=== PATIENT | male | born 1950 | race Caucasian/White ===

== ENCOUNTER 2016-08-30 02:05 | Inpatient (IN) | payer MEDICARE ==
[~2016-08-30] VITALS: Ht 172.7 cm; Wt 68.0 kg
[~2016-08-30 02:05] MED LIST: ALPR0.25 PO; BUDE10.2 IH; DILT180C90 PO; GUAI120L35 PO; LEVO500T38 PO; METO25TA9 PO; PRED20TA PO; PROP150T2 PO; PROVENTIL HFA6.7 GM IH; VALS1TAB8 PO
[2016-08-30] MEDS ORDERED: IV NORMAL SALINE 1000ML BAG 1,000 ML IV SCH (02:23)
[2016-08-30] MEDS ORDERED: ONDANSETRON PF 4 MG/2 ML VIAL. IV PRN ×2 (03:00→09:28)
[2016-08-30] MEDS ORDERED: DILTIAZEM 125 MG in IV DEXTROSE 5% 100 ML IV ONE (03:00)
[2016-08-30] MEDS ORDERED: ASPIRIN 325 MG TABLET PO ONE (03:00)
[2016-08-30] MEDS ORDERED: DILTIAZEM IV PUSH 25 MG/5 ML VIAL. IVP ONE (03:00)
[2016-08-30] MEDS ORDERED: ACETAMINOPHEN 325 MG TABLET. PO PRN (03:00)
[2016-08-30 03:01] LABS: BASO % 0 % (0-3); EOS % 0 % (0-3); HEMOGLOBIN 13.1 g/dL (13.0-17.5); LYMPH # 0.7 x10^3/uL (1.0-4.8); LYMPH % 5 % (24-48); MEAN CORPUSCULAR HEMOGLOBIN 27 pg (25-35); MEAN CORPUSCULAR HGB CONC 33 g/dL (31-37); MEAN CORPUSCULAR VOLUME 84 fL (79-100); MONO % 8 % (0-9); NEUT % 87 % (31-73); PLATELET COUNT 235 x10^3/uL (140-400); RED BLOOD COUNT 4.77 x10^6/uL (4.30-5.70); WHITE BLOOD COUNT 14.1 x10^3/uL (4.0-11.0)
[2016-08-30 03:11] LABS: INR 1.2 (0.8-1.1); PROTHROMBIN TIME PATIENT 14.2 SEC (11.7-14.0)
[2016-08-30 04:09] LABS: ANISOCYTOSIS SLIGHT; PLT ESTIMATE ADEQUATE (ADEQUATE)
[2016-08-30] MEDS: IV NORMAL SALINE 1000ML BAG 1,000 ML IV SCH ×3 (04:46→17:45)
[2016-08-30 05:00] VITALS: BP 131/81
--- NOTE | 2016-08-30 05:46 | PHYS DOC ---
Past Medical History Past Medical History: A-Fib, Bronchitis, COPD, Hypertension Past Surgical History: No Surgical History Alcohol Use: Occasionally Drug Use: None Adult General Chief Complaint Chief Complaint: Palpitations HPI HPI Patient is a 66 year old gentleman with a history significant for hypertension , COPD, atrial fibrillation, recent hospitalization for influenza, presents to the ER today secondary to palpitations in his chest. Patient reports that last time he was in atrial fibrillation he believes was approximately7 years ago. Patient reports that today he started feeling palpitations in his chest. In reviewing the old records, it appears that during his last ER visit when he was admitted for influenza that there was a question of whether or not he was in rapid A. fib. Patient was initially started on Cardizem however secondary to peripheral edema when he went home with a he stopped taking his Cardizem per discussion with Dr. Christina and he continues to take his metoprolol. Patient reports she's had palpitations 1 day. Patient denies any fevers shakes chills nausea vomiting diarrhea. Patient reports she's had a nonproductive cough without sputum getting better since his discharge from the hospital with influenza. Patient denies any chest pain or lower 70 edema. Patient reports his e commerce manager Dr. Rodas and his enterprise resource planner is Dr. Martinez. Patient reports that he saw Dr. Martinez yesterday and he was started on Levaquin and prednisone for his cough. Patient reports that he had seen Dr. Rodas approximately 2-3 days ago and started him on Phenergan with codeine however Dr. orosco recommended to him that he not take that medication since it's narcotic and might affect his respiratory status. Patient's physical exam was significant for irregularly irregular heart rate was tachycardic to 140. Patient was in no respiratory distress. Patient appeared comfortable. Patient's lungs were clear with no wheezing rales or rhonchi. Patient's ER hospital course was significant for atrial fibrillation with RVR. Patient was given a Cardizem bolus and started on a Cardizem drip to assist with his tachycardia. Patient's remainder of his workup was unremarkable. Patient's chest x-ray labs were all within normal limits. Patient will be admitted to the hospital for further evaluation. Case was discussed with . Critical care time 35 minutes were utilizing the treatment and management of this patient's atrial fibrillation with RVr and the potential for hemodynamic instability. Review of Systems Review of Systems Constitutional: Denies fever or chills [] Eyes: Denies change in visual acuity, redness, or eye pain [] All other review systems are negative except as documented in the history of present illness. Current Medications Current Medications Current Medications Medications (Trade) Dose Ordered Sig/Pillo Start Time Stop Time Status Last Admin Dose Admin Sodium Chloride (Iv Sodium Chloride 0.9% 1000ml Bag) 1,000 ml @ 1,000 mls/hr Q1H 08/30/16 02:23 08/30/16 03:22 DC 08/30/16 03:11 1,000 MLS/HR Allergies Allergies Allergies Coded Allergies Type Severity Reaction Last Updated Verified erythromycin base Allergy Severe intussusception 08/06/16 Yes Physical Exam Physical Exam Constitutional: Well developed, well nourished, no acute distress, non-toxic appearance. [] HENT: Normocephalic, atraumatic, bilateral external ears normal, oropharynx moist, no oral exudates, nose normal. [] Eyes: PERRLA, EOMI, conjunctiva normal, no discharge. [] Neck: Normal range of motion, no tenderness, supple, no stridor. [] Cardiovascula irreg irreg tachy Lungs & Thorax: Bilateral breath sounds clear to auscultation [] Abdomen: Bowel sounds normal, soft, no tenderness, no masses, no pulsatile masses. [] Skin: Warm, dry, no erythema, no rash. [] Back: No tenderness, no CVA tenderness. [] Extremities: No tenderness, no cyanosis, no clubbing, ROM intact, no edema. [] Neurologic: Alert and oriented X 3, normal motor function, normal sensory function, no focal deficits noted. [] Psychologic: Affect normal, judgement normal, mood normal. [] Current Patient Data Vital Signs Vital Signs Date Time Temp Pulse Resp B/P Pulse Ox O2 Delivery O2 Flow Rate FiO2 08/30/16 02:05 97.8 70 24 140/83 97 Nasal Cannula 2.5 97.8 EKG EKG [] Radiology/Procedures Radiology/Procedures [] EKG reveals atrial fibrillation with RVR no STEMI. Course & Med Decision Making Course & Med Decision Making Pertinent Labs and Imaging studies reviewed. (See chart for details) [] Dragon Disclaimer Dragon Disclaimer This electronic medical record was generated, in whole or in part, using a voice recognition dictation system. Departure Departure Impression: Primary Impression: Atrial fibrillation with RVR Disposition: ADMITTED INPATIENT Admitting Physician: Alfa Li Condition: GUARDED Referrals: NO PCP (PCP) IGNACIA VENEGAS MD Aug 30, 2016 05:46
[2016-08-30 05:52] LABS: CALCIUM 8.9 mg/dL (8.5-10.1); CREATININE 0.5 mg/dL (0.7-1.3); GFR 166.4; POTASSIUM 3.5 mmol/L (3.5-5.1)
[2016-08-30 05:58] LABS: ALBUMIN 2.3 g/dL (3.4-5.0); DIRECT BILIRUBIN 0.1 mg/dL (0.0-0.2); MAGNESIUM 1.8 mg/dL (1.8-2.4); TOTAL BILIRUBIN 0.4 mg/dL (0.2-1.0)
[2016-08-30] MEDS ORDERED: ALBUTEROL SULFATE 2.5 MG/3 ML NEBU. NEB ONE (06:00)
[2016-08-30 06:20] LABS: OBC FLU VALID
--- NOTE | 2016-08-30 06:40 | EKG ---
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 LOW LIMB LEAD VOLTAGE QRS(T) CONTOUR ABNORMALITY CONSIDER ANTEROSEPTAL MYOCARDIAL DAMAGE RI6.01 Unconfirmed report Electronically Signed On 09-02-2016 13:53:35 STEM ASSEMBLER by Chacorta Duong
--- NOTE | 2016-08-30 07:14 | RAD ---
Exam performed: One view chest. Indication: svt; COUGH X TONIGHT Date of Service: 08/30/2016 4:23 AM Comparison: 08/06/16. Single AP upright portable view chest findings: Cardiomediastinal silhouette is within limits of normal. No acute infiltrates, effusion or pneumothorax is detected. The bony structures are normal. Impression: No acute cardiopulmonary process is detected.
--- NOTE | 2016-08-30 07:33 | ACF ---
Admit Criteria Forms Admit Criteria Forms Admit Criteria Forms ATRIAL FIBRILLATION Clinical Indications for Admission to Inpatient Care (Place 'X' for any and all applicable criteria): Admission indicated for ANY ONE of the following(1)(2)(3)(4)(5) : [ ]I. Myocardial ischemia [ ]II. Dyspnea or hypoxemia [X]III. Hemodynamic instability [ ]IV. Heart failure (e.g., pulmonary edema) (7) [ ]V. New-onset (less than 48 hours) atrial fibrillation with high risk for causing complications secondary to comorbidities (eg, symptomatic heart failure ) [ ]. Altered mental status [ ]VII. Syncope [ ]VIII. Patient has implantable cardioverter defibrillator that has fired more than once within past 24hr or needs immediate adjustment of settings that cannot be done other than in inpatient setting. (8) [ ]IX. Suspected accessory pathway (e.g., Edqfd-Uvvuziepl-Oarfj syndrome) on ECG [ ]X. Recent systemic thromboembolism (eg, stroke) [ ]XI. Medication toxicity (e.g., digitalis) causing arrhythmia(9) [ ]XII. Underlying medical condition that necessitates inpatient care (e.g., thyrotoxicosis, pneumonia) (10) [ ]XIII. Continuous ECG monitoring is required for condition causing arrhythmia (e.g., severe hyperkalemia, hypokalemia, acid-base disturbance).(11)(12)(13) [ ]XIV. Initiation of antiarrhythmic drug therapy is needed in patient at high risk of adverse effects as indicated by ANY ONE of the following: [ ]a) Significant structural heart disease (e.g., reduced ejection fraction, congenital heart disease, valvular heart disease) [ ]b) Prolonged QT interval [ ]c) Underlying sinus node or atrioventricular conduction disturbances [ ]d) Need for treatment with antiarrhythmic drugs that have significant proarrhythmic potential (e.g., dofetilide, sotalol, procainamide) [ ]e) Patient whose sinus rhythm has never been observed on ECG [ ]XV. Intolerable symptoms despite optimal outpatient treatment [ ]XVI. Elective or urgent cardioversion that cannot be performed on outpatient basis or during observation care. [A] (Use also Atrial Fibrillation: Observation Care ) as appropriate.(14) [ ]XVII.Contraindications and/or Inappropriate clinical situations for Observational Care in patients with Atrial Fibrillation, when ANY ONE of the following is required: [ ]a) Patient with High risk of cardiac embolism (e.g, patients with previous cardiac embolism, LVEF < 40%, age >75 and patients with prosthetic valve) 18 [ ]b) Patient with Moderate risk including DM patient, CAD and patient aged 65-75 18 [ ]c) Patient with any change in cardiac biomarker especially troponin should be managed as high risk in an inpatient setting 19 [ ]d) Physician judgement irrespective of ECG and other diagnostic findings 20 [ ]XVIII.General contraindications and/or Inappropriate clinical situations for Observational Care in patients with Atrial Fibrillation, when ANY ONE of the following is required: [ ]a) Prediction of prolongation of LOS based on ANY ONE of the following may be considered as a contraindication for observational care 2, 3, 4, 5, 6, 7, 8, 9, 10, 11 [ ]i) Age > 65 yrs. [ ]ii) Patient arriving by ambulance [ ]iii) Patient with high acuity [ ]iv) Patient requiring vital sign monitoring [ ]v) Patient on IV medication [ ]b) Systolic blood pressures 180mmHg 3,12 [ ]c) Patient with altered mental status including delirium and other alteration of consciousness3 [ ]d) Patient whose discharge disposition will be to a alf home or rehabilitation home should not be managed in Emergency Department Observation Unit. CMS rule requires 3 days hospital stay before such placement.3,13 [ ]e) Patient with failure to thrive due to broad array of etiologies 3,16,17 [ ]f) Inability to ambulate 3,14 Extended stay beyond goal length of stay may be needed for (1)(25)(26): [ ]a) Unstable comorbidities [ ]b) Persistently uncontrolled atrial fibrillation or other arrhythmias [ ]c) Acute thromboembolic event (e.g., stroke, limb ischemia) [ ]d) Need for inpatient attainment of full anticoagulation The original [employer] content created by [employer] has been revised. The portions of the content which have been revised are identified through the use of italic text or in bold, and [employer] has neither reviewed nor approved the modified material. All other unmodified content is copyright [employer]. Please see references footnoted in the original [employer] edition 2015 TERESE HANSEN Aug 30, 2016:33
[2016-08-30 07:56] VITALS: BP 101/63
--- NOTE | 2016-08-30 09:17 | PDOC2 ---
CONSULT Date of Consult Date of Consult DATE: 08/30/16 TIME: 09:07 Reason for Consult Reason for Consult: A fib with RVR Referring Physician Referring Physician: Dr. Limon Identification/Chief Complaint Chief Complaint Palpitations, irregular heartbeat History of Present Illness Reason for Visit: This pleasant 66 year old male presented to the ER overnight with complaints of palpitations and irregular heart beat. He states he had seen Dr Wyman earlier and was started on Levaquin and Prednisone. He states that about 1 hour after taking first dose of Prednisone at around 1 p.m. he noticed palpitations. A few hours after going to bed, he woke up and noticed his heart beating fast again, felt his pulse, and noticed it was irregular. With his history of prior episodes of a-fib, he knew he needed to go to the ER. He was recently hospitalized for the flu in early July, and states that after about 3 weeks he was starting to feel better and had gone out to run a few errands over the last week. His cough has worsened over the last week, is non-productive. States that taking cough syrup upsets his stomach. During his cardiology appointment this week he was given Phenergan with Codeine, which he states he never took because he read the side effects and was not comfortable with that profile. At his visit with Dr Wyman he was given new medications and advised not to take Phenergan with Codeine due to concerns about respiratory status. In ER, EKG revealed A-fib with RVR and patient was started on Cardizem. He has remained on Diltiazem since admission and currently denies any palpitations, lightheadedness, or dizziness. Current Problem List Problem List Problems Medical Problems: (1) Atrial fibrillation with RVR Status: Acute Current Medications Current Medications Current Medications Diltiazem HCl (Cardizem) 20 mg 1X ONCE IVP Last administered on 08/30/16 03:14 ; Start 08/30/16 at 03:00; Stop 08/30/16 at 03:01; Status DC Aspirin 325 mg 325 mg 1X ONCE PO Last administered on 08/30/16 03:12; Start at 03:00; Stop 08/30/16 at 03:01; Status DC Diltiazem HCl 125 mg/Dextrose 125 ml @ 10 mls/hr 1X ONCE IV Last administered on 08/30/16 03:42; Start 08/30/16 at 03:00; Stop 08/30/16 at 15:29 Sodium Chloride (Iv Sodium Chloride 0.9% 1000ml Bag) 1,000 ml @ 1,000 mls/hr Q1H IV Last administered on 08/30/16 03:11; Start 08/30/16 at 02:23; Stop at 03:22; Status DC Ondansetron HCl 4 mg 4 mg PRN Q8HRS PRN IV NAUSEA/VOMITING; Start 08/30/16 at 03 :00; Stop 08/31/16 at 02:59 Sodium Chloride (Iv Sodium Chloride 0.9% 1000ml Bag) 1,000 ml @ 125 mls/hr Q8H IV Last administered on 08/30/16 04:46; Start 08/30/16 at 02:48; Stop 08/31/16 at 02:47 Acetaminophen (Tylenol) 650 mg PRN Q4HRS PRN PO FEVER; Start 08/30/16 at 03:00; Stop 08/31/16 at 02:59 Albuterol Sulfate (Ventolin Neb Soln) 2.5 mg 1X ONCE NEB Last administered on 08/30/16 06:08; Start 08/30/16 at 06:00; Stop 08/30/16 at 06:01; Status DC Active Scripts Active Levaquin (Levofloxacin) 500 Mg Tablet 500 Mg PO DAILY06 Diltiazem 24Hr Cd (Diltiazem HCl) 180 Mg Cap.er.24h 180 Mg PO DAILY Reported Symbicort 160-4.5 Mcg Inhaler (Budesonide/Formoterol Fumarate) 10.2 Gm Hfa.aer.ad 2 Puff IH BID Xanax (Alprazolam) 0.25 Mg Tablet 0.25 Mg PO Q PRN BID PRN Metoprolol Succinate ( Xl ) (Metoprolol Succinate) 25 Mg Tab.er.24h 25 Mg PO BID Allergies Allergies: Coded Allergies: erythromycin base (Verified Allergy, Severe, intussusception, 08/06/16) Physical Exam General: Alert, Oriented X3, Cooperative, No acute distress Lungs: Other (Coarse breath sounds b/l) Heart: Regular rate, Other (Irregularly irregular rhythm) Abdomen: Soft, No tenderness Extremities: No cyanosis, No edema Vitals VITALS Vital Signs Date Time Temp Pulse Resp B/P Pulse Ox O2 Delivery O2 Flow Rate FiO2 08/30/16 07:56 97.5 97 23 101/63 96 Nasal Cannula 3.0 97.5 Labs Labs Laboratory Tests Test 08/30/16 02:51 08/30/16 05:34 08/30/16 05:45 White Blood Count 14.1x10^3/uL (4.0-11.0) Red Blood Count 4.77x10^6/uL (4.30-5.70) Hemoglobin 13.1g/dL (13.0-17.5) Hematocrit 40.0% (39.0-53.0) Mean Corpuscular Volume 84fL (79-100) Mean Corpuscular Hemoglobin 27pg (25-35) Mean Corpuscular Hemoglobin Concent 33g/dL (31-37) Red Cell Distribution Width 15.0% (11.5-14.5) Platelet Count 235x10^3/uL (140-400) Neutrophils (%) (Auto) 87% (31-73) Lymphocytes (%) (Auto) 5% (24-48) Monocytes (%) (Auto) 8% (0-9) Eosinophils (%) (Auto) 0% (0-3) Basophils (%) (Auto) 0% (0-3) Neutrophils # (Auto) 12.3x10^3uL (1.8-7.7) Lymphocytes # (Auto) 0.7x10^3/uL (1.0-4.8) Monocytes # (Auto) 1.1x10^3/uL (0.0-1.1) Eosinophils # (Auto) 0.0x10^3/uL (0.0-0.7) Basophils # (Auto) 0.0x10^3/uL (0.0-0.2) Segmented Neutrophils % 90% (35-66) Lymphocytes % 5% (24-48) Monocytes % 5% (0-10) Platelet Estimate Adequate (ADEQUATE) Anisocytosis Slight Prothrombin Time 14.2SEC (11.7-14.0) Prothromb Time International Ratio 1.2 (0.8-1.1) Sodium Level 140mmol/L (136-145) Potassium Level 3.5mmol/L (3.5-5.1) Chloride Level 100mmol/L (98-107) Carbon Dioxide Level 37mmol/L (21-32) Anion Gap 3 (6-14) Blood Urea Nitrogen 9mg/dL (8-26) Creatinine 0.5mg/dL (0.7-1.3) Estimated GFR (Cockcroft-Gault) 166.4 Glucose Level 100mg/dL (70-99) Calcium Level 8.9mg/dL (8.5-10.1) Magnesium Level 1.8mg/dL (1.8-2.4) Total Bilirubin 0.4mg/dL (0.2-1.0) Direct Bilirubin 0.1mg/dL (0.0-0.2) Aspartate Amino Transf (AST/SGOT) 23U/L (15-37) Alanine Aminotransferase (ALT/SGPT) 30U/L (16-63) Alkaline Phosphatase 61U/L (46-116) Troponin I Quantitative < 0.017ng/mL (0.000-0.055) AT-Fen-X-Type Natriuretic Peptide 350pg/mL (0-124) Total Protein 6.0g/dL (6.4-8.2) Albumin 2.3g/dL (3.4-5.0) Thyroid Stimulating Hormone (TSH) 0.356uIU/mL (0.358-3.74) Influenza Type A Antigen Negative (NEGATIVE) Influenza Type B Antigen Negative (NEGATIVE) Laboratory Tests Test 08/30/16 02:51 08/30/16 05:34 08/30/16 05:45 White Blood Count 14.1x10^3/uL (4.0-11.0) Red Blood Count 4.77x10^6/uL (4.30-5.70) Hemoglobin 13.1g/dL (13.0-17.5) Hematocrit 40.0% (39.0-53.0) Mean Corpuscular Volume 84fL (79-100) Mean Corpuscular Hemoglobin 27pg (25-35) Mean Corpuscular Hemoglobin Concent 33g/dL (31-37) Red Cell Distribution Width 15.0% (11.5-14.5) Platelet Count 235x10^3/uL (140-400) Neutrophils (%) (Auto) 87% (31-73) Lymphocytes (%) (Auto) 5% (24-48) Monocytes (%) (Auto) 8% (0-9) Eosinophils (%) (Auto) 0% (0-3) Basophils (%) (Auto) 0% (0-3) Neutrophils # (Auto) 12.3x10^3uL (1.8-7.7) Lymphocytes # (Auto) 0.7x10^3/uL (1.0-4.8) Monocytes # (Auto) 1.1x10^3/uL (0.0-1.1) Eosinophils # (Auto) 0.0x10^3/uL (0.0-0.7) Basophils # (Auto) 0.0x10^3/uL (0.0-0.2) Segmented Neutrophils % 90% (35-66) Lymphocytes % 5% (24-48) Monocytes % 5% (0-10) Platelet Estimate Adequate (ADEQUATE) Anisocytosis Slight Prothrombin Time 14.2SEC (11.7-14.0) Prothromb Time International Ratio 1.2 (0.8-1.1) Sodium Level 140mmol/L (136-145) Potassium Level 3.5mmol/L (3.5-5.1) Chloride Level 100mmol/L (98-107) Carbon Dioxide Level 37mmol/L (21-32) Anion Gap 3 (6-14) Blood Urea Nitrogen 9mg/dL (8-26) Creatinine 0.5mg/dL (0.7-1.3) Estimated GFR (Cockcroft-Gault) 166.4 Glucose Level 100mg/dL (70-99) Calcium Level 8.9mg/dL (8.5-10.1) Magnesium Level 1.8mg/dL (1.8-2.4) Total Bilirubin 0.4mg/dL (0.2-1.0) Direct Bilirubin 0.1mg/dL (0.0-0.2) Aspartate Amino Transf (AST/SGOT) 23U/L (15-37) Alanine Aminotransferase (ALT/SGPT) 30U/L (16-63) Alkaline Phosphatase 61U/L (46-116) Troponin I Quantitative < 0.017ng/mL (0.000-0.055) EU-Oje-B-Type Natriuretic Peptide 350pg/mL (0-124) Total Protein 6.0g/dL (6.4-8.2) Albumin 2.3g/dL (3.4-5.0) Thyroid Stimulating Hormone (TSH) 0.356uIU/mL (0.358-3.74) Influenza Type A Antigen Negative (NEGATIVE) Influenza Type B Antigen Negative (NEGATIVE) Assessment/Plan Assessment/Plan 1. A-fib with RVR The pt was supossed to be on Rhythmol 150mg po bid but I do not know exactly what dose he is taking. In the past when I tried to give him Diltiazem he developed edema of the lower extremities and it was stopped. Will resume the PO Rhythmol. He picks and chooses how he takes meds. Will follow him with you Thank you for asking me to participate in the care of this pt. DEE FRANKS MD Aug 30, 2016 09:17
[2016-08-30] MEDS ORDERED: DILTIAZEM HCL 180 MG CAP.ER.24H PO SCH (10:00)
[2016-08-30 10:23] LABS: FREE T4 1.11 ng/dL (0.76-1.46)
[2016-08-30] MEDS ORDERED: BENZONATATE 100 MG CAPSULE. PO PRN (10:30)
--- NOTE | 2016-08-30 10:38 | PDOC1 ---
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 Hx left lung nodule, Extensive time dw him pred wont usually caus atrial fib but can cause tachy Pt when asked has hx of paroxysmal atrial fib in the past, this might be his 4th or 5th epsiode, He would sponatneously convert, was never placed on blood thinners TSH low side, mild, no known thyroid issues Called pulmo per pt request to make sure pred is safe or unsafe to take, CXR clear, no wheezing but pt is coughing. We decided hold off on pred in [place] light of this active afib RVR issue Dw pt SIGNFI TIME With my signif time with him today, sound slike he has had multiple adverse reactions to other emds, like OTC mucinex, etc Past Medical History Cardiovascular: AFIB, HTN Pulmonary: Bronchitis Psych: Anxiety Past Surgical History Past Surgical History: No pertinent history Family History Family History: No Significant Social History Smoke: Quit ALCOHOL: none Drugs: None Current Problem List Problem List Problems Medical Problems: (1) Atrial fibrillation with RVR Status: Acute Problems: Current Medications Current Medications Current Medications Diltiazem HCl (Cardizem) 20 mg 1X ONCE IVP Last administered on 08/30/16 03:14 ; Start 08/30/16 at 03:00; Stop 08/30/16 at 03:01; Status DC Aspirin 325 mg 325 mg 1X ONCE PO Last administered on 08/30/16 03:12; Start at 03:00; Stop 08/30/16 at 03:01; Status DC Diltiazem HCl 125 mg/Dextrose 125 ml @ 10 mls/hr 1X ONCE IV Last administered on 08/30/16 03:42; Start 08/30/16 at 03:00; Stop 08/30/16 at 15:29 Sodium Chloride (Iv Sodium Chloride 0.9% 1000ml Bag) 1,000 ml @ 1,000 mls/hr Q1H IV Last administered on 08/30/16 03:11; Start 08/30/16 at 02:23; Stop at 03:22; Status DC Ondansetron HCl 4 mg 4 mg PRN Q8HRS PRN IV NAUSEA/VOMITING; Start 08/30/16 at 03 :00; Stop 08/30/16 at 09:30; Status DC Sodium Chloride (Iv Sodium Chloride 0.9% 1000ml Bag) 1,000 ml @ 125 mls/hr Q8H IV Last administered on 08/30/16 04:46; Start 08/30/16 at 02:48; Stop 08/31/16 at 02:47 Acetaminophen (Tylenol) 650 mg PRN Q4HRS PRN PO FEVER; Start 08/30/16 at 03:00; Stop 08/31/16 at 02:59 Albuterol Sulfate (Ventolin Neb Soln) 2.5 mg 1X ONCE NEB Last administered on 08/30/16 06:08; Start 08/30/16 at 06:00; Stop 08/30/16 at 06:01; Status DC Ondansetron HCl (Zofran) 4 mg PRN Q6HRS PRN IV NAUSEA/VOMITING; Start 08/30/16 at 09:28 Alprazolam (Xanax) 0.25 mg PRN TID PRN PO ANXIETY / AGITATION; Start 08/30/16 at 09:30 Diltiazem HCl (Cardizem 24hr Cd) 180 mg DAILY PO ; Start 08/30/16 at 10:00 Levofloxacin (Levaquin) 500 mg DAILY06 PO ; Start 08/30/16 at 10:00 Metoprolol Succinate (Toprol Xl) 25 mg BID PO ; Start 08/30/16 at 10:00 Albuterol Sulfate (Ventolin Neb Soln) 2.5 mg RTQID NEB ; Start 08/30/16 at 12:00 Budesonide (Pulmicort) 0.5 mg RTBID NEB ; Start 08/30/16 at 12:00 Active Scripts Active Levaquin (Levofloxacin) 500 Mg Tablet 500 Mg PO DAILY06 Diltiazem 24Hr Cd (Diltiazem HCl) 180 Mg Cap.er.24h 180 Mg PO DAILY Reported Symbicort 160-4.5 Mcg Inhaler (Budesonide/Formoterol Fumarate) 10.2 Gm Hfa.aer.ad 2 Puff IH BID Xanax (Alprazolam) 0.25 Mg Tablet 0.25 Mg PO Q PRN BID PRN Metoprolol Succinate ( Xl ) (Metoprolol Succinate) 25 Mg Tab.er.24h 25 Mg PO BID Allergies Allergies: Coded Allergies: erythromycin base (Verified Allergy, Severe, intussusception, 08/06/16) ROS General: No: Appetite, Chills, Fatigue, Malaise, Night Sweats, Other PSYCHOLOGICAL ROS: YES: Anxiety Eyes: No Blurry vision, No Decreased vision, No Double vision, No Dry eyes, No Excessive tearing, No Eye Pain, No Itchy Eyes, No Loss of vision, No Other, No Photophobia, No Scotomata, No Uses contacts, No Uses glasses HEENT: No: Epistaxis, Heacaches, Hearing change, Nasal congestion, Nasal discharge, Oral lesions, Other, Sinus pain, Sneezing, Snoring, Sore Throat, Tinnitus, Vertigo, Visual Changes, Vocal changes ALLERGY AND IMMUNOLOGY: No: Hives, Insect Bite Sensitivity, Itchy/Watery Eyes, Nasal Congestion, Other, Post Nasal Drip, Seasonal Allergies Hematological and Lymphatic: No: Bleeding Problems, Blood Clots, Blood Transfusions, Brusing, Night Sweats, Other, Pallor, Swollen Lymph Nodes ENDOCRINE: No: Breast Changes, Galactorrhea, Hair Pattern Changes, Hot Flashes , Malaise/lethargy, Mood Swings, Other, Palpitations, Polydipsia/polyuria, Skin Changes, Temperature Intolerance, Unexpected Weight Changes Breast: No New/Changing Breast Lumps, No Nipple changes, No Nipple discharge, No Other Respiratory: YES: Cough, Shortness of breath Cardiovascular: yes Palpitations Gastrointestinal: No Abdominal Pain, No Constipation, No Diarrhea, No Hematochezia, No Melena, No Nausea, No Other, No Vomiting Genitourinary: No , No , No , No , No , No , No , No Discharge, No Dysuria, No Flank Pain, No Frequency, No Hematuria, No Incontinence, No Other, No Pain, No Retention, No Urgency Neurological: No Behavorial Changes, No Bowel/Bladder ControlChng, No Confusion , No Dizziness, No Gait Disturbance, No Headaches, No Impaired Coord/balance, No Memory Loss, No Numbness/Tingling, No Other, No Seizures, No Speech Problems , No Tremors, No Visual Changes, No Weakness Skin: No Acne, No Dry Skin, No Eczema, No Hair Changes, No Lumps, No Mole Changes, No Mottling, No Nail Changes, No Other, No Pruritus, No Rash, No Skin Lesion Changes Physical Exam General: Alert, Oriented X3, Cooperative, No acute distress HEENT: Atraumatic, EOMI, Mucous membr. moist/pink Lungs: Clear to auscultation Heart: S1S2, RRR, no thrills, no gallops, irregularly irregular Cardiovascular: S1, S2, Other Breasts: Normal Rectal Exam: not examined PELVIC: Nml ext genitalia Extremities: No clubbing, No cyanosis, No edema, Normal pulses, No tenderness/ swelling Skin: No rashes, No breakdown, No significant lesion Psych/Mental Status: Mental status NL, Mood NL Vitals Vitals Vital Signs Date Time Temp Pulse Resp B/P Pulse Ox O2 Delivery O2 Flow Rate FiO2 08/30/16 07:56 97.5 97 23 101/63 96 Nasal Cannula 3.0 97.5 Labs Labs Laboratory Tests Test 08/30/16 02:51 08/30/16 05:34 08/30/16 05:45 White Blood Count 14.1x10^3/uL (4.0-11.0) Red Blood Count 4.77x10^6/uL (4.30-5.70) Hemoglobin 13.1g/dL (13.0-17.5) Hematocrit 40.0% (39.0-53.0) Mean Corpuscular Volume 84fL (79-100) Mean Corpuscular Hemoglobin 27pg (25-35) Mean Corpuscular Hemoglobin Concent 33g/dL (31-37) Red Cell Distribution Width 15.0% (11.5-14.5) Platelet Count 235x10^3/uL (140-400) Neutrophils (%) (Auto) 87% (31-73) Lymphocytes (%) (Auto) 5% (24-48) Monocytes (%) (Auto) 8% (0-9) Eosinophils (%) (Auto) 0% (0-3) Basophils (%) (Auto) 0% (0-3) Neutrophils # (Auto) 12.3x10^3uL (1.8-7.7) Lymphocytes # (Auto) 0.7x10^3/uL (1.0-4.8) Monocytes # (Auto) 1.1x10^3/uL (0.0-1.1) Eosinophils # (Auto) 0.0x10^3/uL (0.0-0.7) Basophils # (Auto) 0.0x10^3/uL (0.0-0.2) Segmented Neutrophils % 90% (35-66) Lymphocytes % 5% (24-48) Monocytes % 5% (0-10) Platelet Estimate Adequate (ADEQUATE) Anisocytosis Slight Prothrombin Time 14.2SEC (11.7-14.0) Prothromb Time International Ratio 1.2 (0.8-1.1) Sodium Level 140mmol/L (136-145) Potassium Level 3.5mmol/L (3.5-5.1) Chloride Level 100mmol/L (98-107) Carbon Dioxide Level 37mmol/L (21-32) Anion Gap 3 (6-14) Blood Urea Nitrogen 9mg/dL (8-26) Creatinine 0.5mg/dL (0.7-1.3) Estimated GFR (Cockcroft-Gault) 166.4 Glucose Level 100mg/dL (70-99) Calcium Level 8.9mg/dL (8.5-10.1) Magnesium Level 1.8mg/dL (1.8-2.4) Total Bilirubin 0.4mg/dL (0.2-1.0) Direct Bilirubin 0.1mg/dL (0.0-0.2) Aspartate Amino Transf (AST/SGOT) 23U/L (15-37) Alanine Aminotransferase (ALT/SGPT) 30U/L (16-63) Alkaline Phosphatase 61U/L (46-116) Troponin I Quantitative < 0.017ng/mL (0.000-0.055) UY-Top-L-Type Natriuretic Peptide 350pg/mL (0-124) Total Protein 6.0g/dL (6.4-8.2) Albumin 2.3g/dL (3.4-5.0) Thyroid Stimulating Hormone (TSH) 0.356uIU/mL (0.358-3.74) Free Thyroxine 1.11ng/dL (0.76-1.46) Influenza Type A Antigen Negative (NEGATIVE) Influenza Type B Antigen Negative (NEGATIVE) Laboratory Tests Test 08/30/16 02:51 08/30/16 05:34 08/30/16 05:45 White Blood Count 14.1x10^3/uL (4.0-11.0) Red Blood Count 4.77x10^6/uL (4.30-5.70) Hemoglobin 13.1g/dL (13.0-17.5) Hematocrit 40.0% (39.0-53.0) Mean Corpuscular Volume 84fL (79-100) Mean Corpuscular Hemoglobin 27pg (25-35) Mean Corpuscular Hemoglobin Concent 33g/dL (31-37) Red Cell Distribution Width 15.0% (11.5-14.5) Platelet Count 235x10^3/uL (140-400) Neutrophils (%) (Auto) 87% (31-73) Lymphocytes (%) (Auto) 5% (24-48) Monocytes (%) (Auto) 8% (0-9) Eosinophils (%) (Auto) 0% (0-3) Basophils (%) (Auto) 0% (0-3) Neutrophils # (Auto) 12.3x10^3uL (1.8-7.7) Lymphocytes # (Auto) 0.7x10^3/uL (1.0-4.8) Monocytes # (Auto) 1.1x10^3/uL (0.0-1.1) Eosinophils # (Auto) 0.0x10^3/uL (0.0-0.7) Basophils # (Auto) 0.0x10^3/uL (0.0-0.2) Segmented Neutrophils % 90% (35-66) Lymphocytes % 5% (24-48) Monocytes % 5% (0-10) Platelet Estimate Adequate (ADEQUATE) Anisocytosis Slight Prothrombin Time 14.2SEC (11.7-14.0) Prothromb Time International Ratio 1.2 (0.8-1.1) Sodium Level 140mmol/L (136-145) Potassium Level 3.5mmol/L (3.5-5.1) Chloride Level 100mmol/L (98-107) Carbon Dioxide Level 37mmol/L (21-32) Anion Gap 3 (6-14) Blood Urea Nitrogen 9mg/dL (8-26) Creatinine 0.5mg/dL (0.7-1.3) Estimated GFR (Cockcroft-Gault) 166.4 Glucose Level 100mg/dL (70-99) Calcium Level 8.9mg/dL (8.5-10.1) Magnesium Level 1.8mg/dL (1.8-2.4) Total Bilirubin 0.4mg/dL (0.2-1.0) Direct Bilirubin 0.1mg/dL (0.0-0.2) Aspartate Amino Transf (AST/SGOT) 23U/L (15-37) Alanine Aminotransferase (ALT/SGPT) 30U/L (16-63) Alkaline Phosphatase 61U/L (46-116) Troponin I Quantitative < 0.017ng/mL (0.000-0.055) OC-Esu-K-Type Natriuretic Peptide 350pg/mL (0-124) Total Protein 6.0g/dL (6.4-8.2) Albumin 2.3g/dL (3.4-5.0) Thyroid Stimulating Hormone (TSH) 0.356uIU/mL (0.358-3.74) Free Thyroxine 1.11ng/dL (0.76-1.46) Influenza Type A Antigen Negative (NEGATIVE) Influenza Type B Antigen Negative (NEGATIVE) VTE Prophylaxis Ordered VTE Prophylaxis Devices: Yes VTE Pharmacological Prophylaxi: Yes Assessment/Plan Assessment/Plan 1. INtermittent paroxysmal atrial fib RVR 2. Recent acute bronchitis 3. HX lung nodule 4. Adverse reactions to multiple drugs in [place] past PLAn: CArdizem gtt OK to resume levaquin HOld off PO pred Resume home meds TEssalon yuniore prn DW pulmo and RN and pt,. time 76 mins at least cumulative AMANUEL SANTIAGO MD Aug 30, 2016 10:38
[2016-08-30] MEDS: ALPRAZOLAM 0.25 MG TABLET PO PRN ×2 (11:15→22:12)
[2016-08-30] MEDS: METOPROLOL SUCC 24HR ER 25 MG TAB.ER.24H. PO SCH ×2 (11:15→20:24)
[2016-08-30] MEDS: LEVOFLOXACIN 500 MG TABLET PO SCH (11:16)
[2016-08-30 11:42] VITALS: BP 95/56
[2016-08-30] MEDS: BUDESONIDE 0.5 MG/2 ML NEBU NEB SCH ×2 (12:47→19:44)
[2016-08-30] MEDS: ALBUTEROL SULFATE 2.5 MG/3 ML NEBU. NEB SCH ×3 (12:47→19:46)
[2016-08-30 15:00] VITALS: BP 102/58
[2016-08-30] MEDS ORDERED: TEMAZEPAM 7.5 MG CAPSULE PO PRN (17:45)
[2016-08-30 19:30] VITALS: BP 120/60
[2016-08-30] MEDS: PROPAFENONE 150 MG TABLET. PO SCH (20:24)
[2016-08-30 23:00] VITALS: BP 119/65
[2016-08-31 04:00] VITALS: BP 117/60
[2016-08-31] MEDS ORDERED: ALBUTEROL SULFATE 2.5 MG/3 ML NEBU. NEB ONE (05:15)
[2016-08-31] MEDS: LEVOFLOXACIN 500 MG TABLET PO SCH (05:22)
[2016-08-31] MEDS: BUDESONIDE 0.5 MG/2 ML NEBU NEB SCH (07:16)
[2016-08-31] MEDS: ALBUTEROL SULFATE 2.5 MG/3 ML NEBU. NEB SCH ×2 (07:16→10:32)
[2016-08-31 07:30] VITALS: BP 127/64
[2016-08-31] MEDS: PROPAFENONE 150 MG TABLET. PO SCH (08:35)
[2016-08-31 08:36] VITALS: BP 127/64
[2016-08-31] MEDS: METOPROLOL SUCC 24HR ER 25 MG TAB.ER.24H. PO SCH (08:36)
--- NOTE | 2016-08-31 10:00 | PDOC3 ---
Discharge Summary Visit Information Date of Admission: Aug 30, 2016 Date of Discharge: Aug 31, 2016 Admitting Diagnosis Comment: 1. INtermittent paroxysmal atrial fib RVR 2. Recent acute bronchitis 3. HX lung nodule 4. Adverse reactions to multiple drugs in [place] past Final Diagnosis Problems Medical Problems: (1) Atrial fib/flutter, transient Status: Acute (2) Atrial fibrillation with RVR Status: Acute Brief Hospital Course Allergies Allergies Coded Allergies Type Severity Reaction Last Updated Verified erythromycin base Allergy Severe intussusception 08/06/16 Yes diltiazem Adverse Reaction Mild 08/31/16 Yes Vital Signs Vital Signs Date Time Temp Pulse Resp B/P Pulse Ox O2 Delivery O2 Flow Rate FiO2 08/31/16 08:36 78 127/64 08/31/16 08:20 Nasal Cannula 2.0 08/31/16 07:30 98.2 20 95 98.2 Lab Results Laboratory Tests Test 08/30/16 02:51 08/30/16 05:34 08/30/16 05:45 White Blood Count 14.1x10^3/uL (4.0-11.0) Red Blood Count 4.77x10^6/uL (4.30-5.70) Hemoglobin 13.1g/dL (13.0-17.5) Hematocrit 40.0% (39.0-53.0) Mean Corpuscular Volume 84fL (79-100) Mean Corpuscular Hemoglobin 27pg (25-35) Mean Corpuscular Hemoglobin Concent 33g/dL (31-37) Red Cell Distribution Width 15.0% (11.5-14.5) Platelet Count 235x10^3/uL (140-400) Neutrophils (%) (Auto) 87% (31-73) Lymphocytes (%) (Auto) 5% (24-48) Monocytes (%) (Auto) 8% (0-9) Eosinophils (%) (Auto) 0% (0-3) Basophils (%) (Auto) 0% (0-3) Neutrophils # (Auto) 12.3x10^3uL (1.8-7.7) Lymphocytes # (Auto) 0.7x10^3/uL (1.0-4.8) Monocytes # (Auto) 1.1x10^3/uL (0.0-1.1) Eosinophils # (Auto) 0.0x10^3/uL (0.0-0.7) Basophils # (Auto) 0.0x10^3/uL (0.0-0.2) Segmented Neutrophils % 90% (35-66) Lymphocytes % 5% (24-48) Monocytes % 5% (0-10) Platelet Estimate Adequate (ADEQUATE) Anisocytosis Slight Prothrombin Time 14.2SEC (11.7-14.0) Prothromb Time International Ratio 1.2 (0.8-1.1) Sodium Level 140mmol/L (136-145) Potassium Level 3.5mmol/L (3.5-5.1) Chloride Level 100mmol/L (98-107) Carbon Dioxide Level 37mmol/L (21-32) Anion Gap 3 (6-14) Blood Urea Nitrogen 9mg/dL (8-26) Creatinine 0.5mg/dL (0.7-1.3) Estimated GFR (Cockcroft-Gault) 166.4 Glucose Level 100mg/dL (70-99) Calcium Level 8.9mg/dL (8.5-10.1) Magnesium Level 1.8mg/dL (1.8-2.4) Total Bilirubin 0.4mg/dL (0.2-1.0) Direct Bilirubin 0.1mg/dL (0.0-0.2) Aspartate Amino Transf (AST/SGOT) 23U/L (15-37) Alanine Aminotransferase (ALT/SGPT) 30U/L (16-63) Alkaline Phosphatase 61U/L (46-116) Troponin I Quantitative < 0.017ng/mL (0.000-0.055) XH-Som-A-Type Natriuretic Peptide 350pg/mL (0-124) Total Protein 6.0g/dL (6.4-8.2) Albumin 2.3g/dL (3.4-5.0) Thyroid Stimulating Hormone (TSH) 0.356uIU/mL (0.358-3.74) Free Thyroxine 1.11ng/dL (0.76-1.46) Free Triiodothyronine (T3) pg/mL 2.39pg/mL (2.18-3.98) Influenza Type A Antigen Negative (NEGATIVE) Influenza Type B Antigen Negative (NEGATIVE) Brief Hospital Course Mr. 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 Hx left lung nodule, Extensive time dw him pred wont usually caus atrial fib but can cause tachy Pt when asked has hx of paroxysmal atrial fib in the past, this might be his 4th or 5th epsiode, He would sponatneously convert, was never placed on blood thinners TSH low side, mild, no known thyroid issues Called pulmo per pt request to make sure pred is safe or unsafe to take, CXR clear, no wheezing but pt is coughing. We decided hold off on pred in [place] light of this active afib RVR issue Dw pt SIGNFI TIME With my signif time with him today, sound slike he has had multiple adverse reactions to other emds, like OTC mucinex, etc NEEDE Dcardizem gtt x 24 hrs only Was on cardisem and BB at home, Looks like cards will start., dc on rhythmol. Pt seen and examined SIGNIF tinme counselling as expecetd --- meds, URI sxs etc RX per cards Dw RN and pt Discharge Information Scheduled Budesonide/Formoterol Fumarate (Symbicort 160-4.5 Mcg Inhaler) 2 PUFF IH BID ( Reported) Diltiazem HCl (Diltiazem 24Hr Cd) 180 MG PO DAILY Levofloxacin (Levaquin) 500 MG PO DAILY06 Metoprolol Succinate (Metoprolol Succinate ( Xl )) 25 MG PO BID (Reported) Scheduled PRN Alprazolam (Xanax) 0.25 MG PO Q PRN BID PRN PRN ANXIETY / AGITATION (Reported) AMANUEL SANTIAGO MD Aug 31, 2016 10:00
[2016-08-31] MEDS ORDERED: PROP150T2 PO (14:41)
== END 2016-08-31 10:45 | disposition home or self-care (01) | DRG 310 ==
LOC: ER 02:05 → 6 SOUTH 02:47 → CVICU 04:27
PROVIDERS: ADMIT Internal Medicine; ATTEND Internal Medicine
DX: I48.0 Paroxysmal atrial fibrillation (principal); I10 Essential (primary) hypertension; F41.9 Anxiety disorder, unspecified; I48.92 Unspecified atrial flutter; J44.9 Chronic obstructive pulmonary disease, unspecified; J20.9 Acute bronchitis, unspecified; Z88.1 Allergy status to other antibiotic agents; Z87.891 Personal history of nicotine dependence
CPT/HCPCS: 36415; 71010; 80048; 80076; 83735; 83880; 84439; 84443; 84481; 84484; 85007; 85027; 85610; 87070; 87205; 87804; 93005; 94640; 94660; 94760; 96361; 96374; 96375; J3490; J7030; 99291-25